=== PATIENT | female | born 1990 | race Caucasian/White ===

== ENCOUNTER 2017-03-08 19:38 | Observation (INO) | payer BC ==
[~2017-03-08] VITALS: Ht 162.6 cm; Wt 61.2 kg
[~2017-03-08 19:38] MED LIST: CYCL10TA29 PO; OXYC-865 PO
--- NOTE | 2017-03-08 19:57 | ER Report ---
History and Physical Time Seen By MD: 19:56 Hx. of Stated Complaint: VOMITING AND DIARRHEA X 24 HOURS. HPI/ROS CHIEF COMPLAINT: Vomiting and diarrhea HISTORY OF PRESENT ILLNESS: This is a 24 week , 26-year-old female who presents to the emergency department for nausea and vomiting and diarrhea. Patient states she developed some nausea and vomiting after eating at [employer] last night continue to have nausea vomiting and diarrhea throughout the night. Today she [facility] where they started an IV gave her some fluids send her home with some ODT Zofran for her nausea vomiting. States she continues to have nausea vomiting and diarrhea, aches, chills and a mild nonproductive cough. Patient denies shortness of breath or chest pain, no vaginal discharge or bleeding. Patient states she is feeling the baby kick. She also states that they did heart tones today and it was "fine". Patient denies dysuria. REVIEW OF SYSTEMS: Constitutional: As above. Eyes: No discharge. ENT: No sore throat. Cardiovascular: No chest pain, no palpitations. Respiratory: As above. Gastrointestinal: As above. Genitourinary: No hematuria. Musculoskeletal: No back pain. Skin: No rashes. Neurological: No headache. Allergies: Coded Allergies: No Known Drug Allergies (Unverified , 03/08/17) Past Medical/Surgical History Patient has a past medical and surgical history of pleurisy, UTIs. Reviewed Nurses Notes: Yes Hx Smoking: No Smoking Status: Never Smoker Hx Substance Use Disorder: No Hx Alcohol Use: No Constitutional Vital Sign - Last 24 Hours 03/08/17 19:43 Temp 98.2 Pulse 122 Resp 20 B/P (MAP) 116/73 Pulse Ox 95 O2 Delivery Room Air Physical Exam General Appearance: The patient is alert, has no immediate need for airway protection and no signs of toxicity. Eyes: Pupils equal and round no pallor or injection. ENT, Mouth: Mucous membranes are moist. Respiratory: There are no retractions, lungs are clear to auscultation. Cardiovascular: Regular rate and rhythm, no murmurs, clicks or rubs. Gastrointestinal: Abdomen is soft, round and non tender, no masses, bowel sounds normal. FHT-145. Neurological: Alert and oriented 4. Moving all extremities. Following all commands. No focal neuro deficits. Skin: Warm and dry, no rashes. Musculoskeletal: Neck is supple non tender. Extremities are nontender, nonswollen and have full range of motion. DIFFERENTIAL DIAGNOSIS: After history and physical exam differential diagnosis was considered for nausea and vomiting including but not limited to gastroenteritis, gastritis, appendicitis, and medication side effect, viral syndrome, influenza. Medical Decision Making Data Points Result Diagram: 03/08/17194103/08/171941 Laboratory Hematology Test 03/08/17 19:42 03/08/17 20:12 03/08/17 20:30 Red Blood Count 3.97 M/uL (4.17-5.56) Mean Corpuscular Volume 88.0 fL (80.0-96.0) Mean Corpuscular Hemoglobin 30.7 pg (26.0-33.0) Mean Corpuscular Hemoglobin Concent 34.9 g/dL (32.0-36.0) Red Cell Distribution Width 12.7 % (11.5-14.5) Mean Platelet Volume 9.6 fL (7.2-11.1) Neutrophils (%) (Auto) 80.0 % (39.4-72.5) Lymphocytes (%) (Auto) 11.9 % (17.6-49.6) Monocytes (%) (Auto) 7.4 % (4.1-12.4) Eosinophils (%) (Auto) 0.3 % (0.4-6.7) Basophils (%) (Auto) 0.4 % (0.3-1.4) Nucleated RBC Relative Count (auto) 0.0 /100WBC Neutrophils # (Auto) 5.5 K/uL (2.0-7.4) Lymphocytes # (Auto) 0.8 K/uL (1.3-3.6) Monocytes # (Auto) 0.5 K/uL (0.3-1.0) Eosinophils # (Auto) 0.0 K/uL (0.0-0.5) Basophils # (Auto) 0.0 K/uL (0.0-0.1) Nucleated RBC Absolute Count (auto) 0.00 K/uL Sodium Level 131 mmol/L (137-145) Potassium Level 3.2 mmol/L (3.5-5.0) Chloride Level 102 mmol/L (98-107) Carbon Dioxide Level 18 mmol/L (22-31) Blood Urea Nitrogen 8 mg/dl (7-18) Creatinine 0.50 mg/dl (0.52-1.04) Glomerular Filtration Rate Calc > 60.0 Random Glucose 83 mg/dl (75-110) Calcium Level 8.4 mg/dl (8.4-10.2) Total Bilirubin 0.7 mg/dl (0.2-1.3) Aspartate Amino Transf (AST/SGOT) 33 U/L (0-35) Alanine Aminotransferase (ALT/SGPT) 37 U/L (0-56) Alkaline Phosphatase 117 U/L (0-126) Total Protein 6.8 gm/dl (6.3-8.2) Albumin 3.4 g/dl (3.5-5.0) Urine Color Yellow Urine Clarity Slightly-cloudy Urine pH 5.0 pH (4.8-9.5) Urine Specific [place] 1.024 Urine Protein 30 mg/dL (NEGATIVE) Urine Glucose (UA) Negative mg/dL (NEGATIVE) Urine Ketones 20 mg/dL (NEGATIVE) Urine Blood Negative (NEGATIVE) Urine Nitrite Negative (NEGATIVE) Urine Bilirubin Negative (NEGATIVE) Urine Urobilinogen 4.0 mg/dL (0.2-1.9) Urine Leukocyte Esterase Small (NEGATIVE) Urine RBC 1 /HPF (0-2/HPF) Urine WBC 10 /HPF (0-5/HPF) Urine Squamous Epithelial Cells Many /LPF (</=FEW) Urine Bacteria Negative /HPF (NONE-FEW) Urine Mucus Few /HPF (NONE-FEW) Influenza Virus Type A (PCR) Negative (NEGATIVE) Influenza Virus Type B (PCR) Negative (NEGATIVE) Chemistry Test 03/08/17 19:42 03/08/17 20:12 03/08/17 20:30 White Blood Count 6.8 k/uL (4.5-11.0) Red Blood Count 3.97 M/uL (4.17-5.56) Hemoglobin 12.2 g/dL (12.0-16.0) Hematocrit 34.9 % (34.0-47.0) Mean Corpuscular Volume 88.0 fL (80.0-96.0) Mean Corpuscular Hemoglobin 30.7 pg (26.0-33.0) Mean Corpuscular Hemoglobin Concent 34.9 g/dL (32.0-36.0) Red Cell Distribution Width 12.7 % (11.5-14.5) Platelet Count 179 K/uL (150-450) Mean Platelet Volume 9.6 fL (7.2-11.1) Neutrophils (%) (Auto) 80.0 % (39.4-72.5) Lymphocytes (%) (Auto) 11.9 % (17.6-49.6) Monocytes (%) (Auto) 7.4 % (4.1-12.4) Eosinophils (%) (Auto) 0.3 % (0.4-6.7) Basophils (%) (Auto) 0.4 % (0.3-1.4) Nucleated RBC Relative Count (auto) 0.0 /100WBC Neutrophils # (Auto) 5.5 K/uL (2.0-7.4) Lymphocytes # (Auto) 0.8 K/uL (1.3-3.6) Monocytes # (Auto) 0.5 K/uL (0.3-1.0) Eosinophils # (Auto) 0.0 K/uL (0.0-0.5) Basophils # (Auto) 0.0 K/uL (0.0-0.1) Nucleated RBC Absolute Count (auto) 0.00 K/uL Glomerular Filtration Rate Calc > 60.0 Calcium Level 8.4 mg/dl (8.4-10.2) Total Bilirubin 0.7 mg/dl (0.2-1.3) Aspartate Amino Transf (AST/SGOT) 33 U/L (0-35) Alanine Aminotransferase (ALT/SGPT) 37 U/L (0-56) Alkaline Phosphatase 117 U/L (0-126) Total Protein 6.8 gm/dl (6.3-8.2) Albumin 3.4 g/dl (3.5-5.0) Urine Color Yellow Urine Clarity Slightly-cloudy Urine pH 5.0 pH (4.8-9.5) Urine Specific [place] 1.024 Urine Protein 30 mg/dL (NEGATIVE) Urine Glucose (UA) Negative mg/dL (NEGATIVE) Urine Ketones 20 mg/dL (NEGATIVE) Urine Blood Negative (NEGATIVE) Urine Nitrite Negative (NEGATIVE) Urine Bilirubin Negative (NEGATIVE) Urine Urobilinogen 4.0 mg/dL (0.2-1.9) Urine Leukocyte Esterase Small (NEGATIVE) Urine RBC 1 /HPF (0-2/HPF) Urine WBC 10 /HPF (0-5/HPF) Urine Squamous Epithelial Cells Many /LPF (</=FEW) Urine Bacteria Negative /HPF (NONE-FEW) Urine Mucus Few /HPF (NONE-FEW) Influenza Virus Type A (PCR) Negative (NEGATIVE) Influenza Virus Type B (PCR) Negative (NEGATIVE) Urinalysis Test 03/08/17 20:12 Urine Color Yellow Urine Clarity Slightly-cloudy Urine pH 5.0 pH (4.8-9.5) Urine Specific [place] 1.024 Urine Protein 30 mg/dL (NEGATIVE) Urine Glucose (UA) Negative mg/dL (NEGATIVE) Urine Ketones 20 mg/dL (NEGATIVE) Urine Blood Negative (NEGATIVE) Urine Nitrite Negative (NEGATIVE) Urine Bilirubin Negative (NEGATIVE) Urine Urobilinogen 4.0 mg/dL (0.2-1.9) Urine Leukocyte Esterase Small (NEGATIVE) Urine RBC 1 /HPF (0-2/HPF) Urine WBC 10 /HPF (0-5/HPF) Urine Squamous Epithelial Cells Many /LPF (</=FEW) Urine Bacteria Negative /HPF (NONE-FEW) Urine Mucus Few /HPF (NONE-FEW) ED Course/Re-evaluation Clinical Indication for ER IV: Hydration, IV Access ED Course The patient was admitted to room. A history physical were obtained. Differential diagnoses were considered. An IV was started. A CBC, CMP and UA were obtained. CBC showing percent neutrophils 80.0 chemistry showing sodium 131 , potassium 3.2, urine showing 20 [id number] bilirubin, urine WBC's 10, urine appears to be contaminated, however I did order a urine culture. Negative influenza. Patient was given a 1 L normal saline bolus, 4 mg IV Zofran. Patient' s heart rate did come down from 125 BPM to 115 BPM. I reviewed these results with the patient and her and told him I would contact Dr. Grayson discuss case with him for possible admission. The patient and her were in agreement with this plan of care. I did speak with Dr. Grayson as noted below he's accepted the patient and his service. The patient will be admitted to the family care unit for nausea, vomiting, diarrhea. I did update the patient and her about the admission. The patient and her had no other questions or concerns at the time of admission. 03/08/2017 9:27:55 pm I did discuss the case with Dr. Grayson and her failed outpatient therapy, he has agreed to admit the patient to the family care unit for nausea, vomiting, diarrhea. I will go ahead and write admission orders as requested. Family care staff can contact Dr. Grayson for any other needs. Decision to Disposition Date: Mar 08, 2017 Decision to Disposition Time: 21:26 Depart Departure Latest Vital Signs Vital Signs Date Time Temp Pulse Resp B/P (MAP) Pulse Ox O2 Delivery O2 Flow Rate FiO2 03/08/17 19:43 98.2 122 20 116/73 95 Room Air Impression: Primary Impression: Vomiting and diarrhea Additional Impression: Condition: Improved Disposition: Admitted from ER MD Consult Note: Dr. Silva Problem Qualifiers Additional Impression: Weeks of gestation: 24 weeks Qualified Codes: Z3A.24 - 24 weeks gestation of KARTIK DANIELS HELMINTHOLOGIST-BC Mar 08, 2017 19:57
[2017-03-08] MEDS ORDERED: NS(*) 0.9% 1000 ML BAG 1,000 ML IV ONE (20:10)
[2017-03-08] MEDS ORDERED: ONDANSETRON 4 MG/2 ML VIAL IVP ONE ×2 (20:10→21:30)
[2017-03-08 20:20] LABS: PLATELET COUNT, AUTOMATED 179 K/uL (150-450)
[2017-03-08] MEDS ORDERED: PROMETHAZINE 25 MG/ML 1 ML AMP IVP PRN (22:15)
[2017-03-08] MEDS: DLR(*) 1000 ML BAG 1,000 ML IV SCH (22:20)
[2017-03-08] MEDS ORDERED: ONDA4TAB PO (22:48)
[2017-03-08] MEDS ORDERED: PREN-127 PO (22:48)
[2017-03-08 23:10] VITALS: BP 102/63
[2017-03-09] MEDS ORDERED: ONDANSETRON 4 MG/2 ML VIAL IVP PRN (01:30)
[2017-03-09] MEDS: DLR(*) 1000 ML BAG 1,000 ML IV SCH (03:34)
--- NOTE | 2017-03-09 03:53 | History & Physical ---
History of Present Illness Age of Patient: 26 : 1 Para or TPAL: 0 Estimated Gestational Age: 24 Chief Complaint nausea, vomiting, diarrhea History of Present Illness Presented to ER with nausea, vomiting and diarrhea. Reported developed nausea the evening of the after eating at [employer] and continued through the day on the . She had gone to the clinic for evaluation and received IV fluids and Zofran. The situation however did not improve after going home and became more nauseated. In ER she was stabilized again with IVFs and anti-emetics but considering her initial failed outpt management, she is admitted for observation and IVF resuscitation. Labs show mildly decreased sodium and ketones in urine consistent with dehydration. History Allergies: Coded Allergies: No Known Drug Allergies (Unverified , 03/08/17) Med Rec Home Meds Reported Medications Vits W-Ca,Fe,Fa(<1MG) ( VITAMINS) 1 Each Tablet, 1 EACH PO DAILY, #1 TAB 03/08/17 Ondansetron (ZOFRAN ODT) 4 Mg Tab.rapdis, 4 MG PO Q12H, #1 TAB.NEELAM 03/08/17 Review of Systems All Systems Reviewed/Normal: Yes, Except as Noted Exam General Exam Vital Signs Vital Signs Date Time Temp Pulse Resp B/P (MAP) Pulse Ox O2 Delivery O2 Flow Rate FiO2 03/08/17 23:10 98.2 113 18 102/63 (76) 95 Room Air General Apperance: Other (asleep) Neuro: No Gross deficits (per ER report) Abdomen: Soft, Non-Tender, Non-Distended, Gravid - Non-Tender (per ER report) Fetus Heart Tones: 144 Medical Decision Making Data Points Result Diagram: 03/08/17194103/08/171941 Assessment and Plan Problems: (1) 24 completed weeks of gestation (2) Vomiting and diarrhea Status: Acute Assessment & Plan: Anti-emetics and IVF hydration. Will test her ability to tolerate PO foods later today. YAW NORWOOD MD Mar 09, 2017 03:53
[2017-03-09 04:30] VITALS: BP 88/41
[2017-03-09] MEDS ORDERED: ACETA/BUTAL/CAFF 325/50/40 TAB PO ONE (08:10)
--- NOTE | 2017-03-09 08:17 | OB/GYN Progress Note ---
OB Subjective Progress Notes Subjective Reports she is feeling better. No nausea this morning but has a headache. Diarrhea is resolved. 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 Will send home with some Phenergan as well as the ODT Zofran she has. Keep her regular appt. YAW NORWOOD MD Mar 09, 2017 08:17
[2017-03-09] MEDS ORDERED: PROM25AM11 PO (08:18)
--- NOTE | 2017-03-09 08:20 | Short(Outpt) Discharge Summary ---
Discharge Summary Reason for Hosp/Final Diag: (1) 24 completed weeks of gestation (2) Vomiting and diarrhea Status: Acute Hospital Course & Plan: Discussed going home and eating a bland diet. Will send home with some Phenergan as well as the ODT Zofran she has. Keep her regular appt. 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
[2017-03-09 08:58] VITALS: BP 108/66
[2017-03-09 09:30] VITALS: Ht 162.6 cm; Wt 61.2 kg
== END 2017-03-09 08:18 | disposition home or self-care (01) ==
LOC: ER 19:51 → PED 21:49
PROVIDERS: ADMIT Obstetrics & Gynecology; ATTEND Obstetrics & Gynecology
DX: O21.2 Late vomiting of pregnancy (principal); Z3A.24 24 weeks gestation of pregnancy; R79.89 Other specified abnormal findings of blood chemistry; R82.90 Unspecified abnormal findings in urine
CPT/HCPCS: 81001; 85025; 87088; 87502; 99285; G0378; J2405; J7030; 82040; 82247; 82310; 82374; 82435; 82565; 82947; 84075; 84132; 84155; 84295; 84450; 84460; 84520; 87077; 87186

== ENCOUNTER → 2017-06-03 | Outpatient (REF) | payer BC, MEDICAID ==
[2017-03-09 09:30] VITALS: BMI 23.2
[~2017-06-03] MED LIST changes: +ONDA4TAB PO; +PREN-127 PO; +PROM25AM11 PO
== END ==
LOC: ZZSENDIN 16:28
PROVIDERS: ATTEND Obstetrics & Gynecology
DX: O42.90 Premature rupture of membranes, unspecified as to length of time between rupture and onset of labor, unspecified weeks of gestation (principal)
CPT/HCPCS: 84112

== ENCOUNTER 2017-06-10 00:36 | Inpatient (IN) | payer BC, MEDICAID ==
[~2017-06-10] VITALS: Ht 162.6 cm; Wt 72.6 kg
[2017-06-10] VITALS (7 sets, daily range): BP systolic 118–159; BP diastolic 64–97; Ht 162.6 cm; Wt 72.6 kg
[2017-06-10] MEDS ORDERED: LR(*) 1000 ML BAG 1,000 ML IV PRN ×2 (00:38→05:25)
[2017-06-10] MEDS ORDERED: OXYTOCIN 30 UNIT/D5LR 500 ML 500 ML ONE (01:01)
[2017-06-10] MEDS ORDERED: OXYTOCIN 30 UNIT/D5LR 500 ML 0 ML ONE (01:06)
[2017-06-10] MEDS: LR(*) 1000 ML BAG 1,000 ML IV SCH ×3 (01:20→21:32)
[2017-06-10] MEDS ORDERED: FAMOTIDINE(*) 20MG/50ML PREMIX 50 ML IVPB PRN (01:32)
[2017-06-10] MEDS ORDERED: OXYTOCIN 30 UNIT/D5LR 500 ML 500 ML IV PRN ×2 (01:32→05:25)
[2017-06-10] MEDS ORDERED: LIDOCAINE 1% LOCAL 300 MG/30ML INJ PRN (01:35)
[2017-06-10] MEDS ORDERED: METOCLOPRAMIDE 10 MG/2 ML SDV IVP PRN (01:35)
[2017-06-10] MEDS ORDERED: HYDROCORTISONE 2.5% CR 30GM TB PR PRN (01:35)
[2017-06-10] MEDS ORDERED: INFLUENZA VIRUS VAC 0.5 ML SYR IM ONLY ONE (01:35)
[2017-06-10] MEDS ORDERED: LANOLIN OINT 7 GM TUBE TP PRN (01:35)
[2017-06-10] MEDS ORDERED: fentaNYL CITR 100 MCG/2 ML AMP IVP PRN (01:35)
[2017-06-10] MEDS ORDERED: MAGNESIUM HYDROXIDE* 30ML UDCP PO PRN (01:35)
[2017-06-10] MEDS ORDERED: BENZOCAINE 20% 60 ML BTL TP PRN (01:35)
[2017-06-10] MEDS ORDERED: LIDOCAINE/SOD BICARB 8.4% SYR SC PRN (01:35)
[2017-06-10] MEDS ORDERED: FLUSH 10 ML SYR IVP PRN (01:35)
[2017-06-10] MEDS ORDERED: ACETAMINOPHEN 325 MG TAB PO PRN (01:35)
[2017-06-10] MEDS ORDERED: HYDROmorphone HCL 2 MG TAB PO PRN (01:35)
[2017-06-10] MEDS ORDERED: GLYCERIN/WITCH HAZEL LEAF 1 PK TOP PRN (01:35)
[2017-06-10] MEDS ORDERED: LIDOCAINE 1% LOCAL 300 MG/30ML INJ ONE (01:40)
--- NOTE | 2017-06-10 02:10 | History & Physical ---
History of Present Illness Age of Patient: 26 : 1 Para or TPAL: 0 EDC per LMP: June 20, 2017 Estimated Gestational Age: 38.2 Chief Complaint Labor and delivery History of Present Illness Presents in active labor and nearly completely dilated and feeling pushy. Reports contractions started at 10 pm. History of chlamydia early in and repeat testing negative. GBS negative. record out of date and reviewed. Failed 1hr GTT but passed 3hr GTT by her report. Past Medical, Surgical, Family and Obstetric Histories reviewed. Please see ACOG chart. History Allergies: Coded Allergies: No Known Drug Allergies (Unverified , 03/08/17) Med Rec Home Meds Active Scripts Promethazine Hcl (PROMETHAZINE HCL) 25 Mg/1 Ml Ampul, 12.5 MG PO Q8H Y for NAUSEA, #20 TAB 0 Refills Prov:YAW NORWOOD MD 03/09/17 Reported Medications Vits W-Ca,Fe,Fa(<1MG) ( VITAMINS) 1 Each Tablet, 1 EACH PO DAILY, #1 TAB 03/08/17 Ondansetron (ZOFRAN ODT) 4 Mg Tab.rapdis, 4 MG PO Q12H, #1 TAB.NEELAM 03/08/17 Review of Systems Other as per HPI Exam General Exam General Apperance: Alert/Awake/No Acute Distress Neuro: No Gross deficits Cardiovascular: Regular Rate and Rhythm Respiratory: No Respiratory Distress Abdomen: Soft, Non-Tender, Non-Distended Integumentary: Other (sores all over skin) Psychological: Alert & Oriented X3 Fetus Heart Tone Variabilty: Moderate FHT Accelerations: Present FHT Category: I Medical Decision Making VTE Prophylasis: Adult Deep Vein Thrombosis/Pulmonary: No Pharmacological Contraindicati: Pt at Low Risk for VTE Mechanical Contraindications: Pt at Low Risk for VTE 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 YAW NORWOOD MD June 10, 2017 02:10
--- NOTE | 2017-06-10 02:18 | OB Delivery Note ---
Delivery Note Vaginal Delivery Type: Spont. Vaginal Delivery Delivery Date: June 10, 2017 Delivery Time: 01:26 Estimated Gestational Age(wks): 38.3 Delivery Anesthesia: Local Sex: Female [place] Apgars: 1 Minute (9), 5 Minute (9) Repair Needed: Episiotomy-Midline, 2nd Degree, 3rd Degree (extension) Estimated Blood Loss: 300 Delivery Complications: Precipitous Notes: Notified of pts arrival nearly complete and pushy. Upon my arrival, pt actively pushing and . Local anesthetic, 1% lidocaine to perineum. Perineum broad and narrowed introitus so midline episiotomy performed. Delivery of head in HARRY position. Posterior shoulder delivered and extended to a third degree. Placenta delivered spontaneously and intact. Repair of anal sphincter with 2-0 Vicryl in interrupted stitches. Full repair with 2-0 chromic without complication. Table Maker in Attendence: No Copies to: YAW NORWOOD MD, TRAVIS MD June 10, 2017 02:18
[2017-06-10] MEDS ORDERED: ONDANSETRON 4 MG/2 ML VIAL IVP PRN (02:35)
[2017-06-10 03:00] LABS: PLATELET COUNT, AUTOMATED 161 K/uL (150-450)
[2017-06-10] MEDS: IBUPROFEN 800 MG TAB PO SCH ×3 (03:38→20:21)
[2017-06-10] MEDS: FERROUS SULFATE 325 MG TAB PO SCH ×2 (08:30→18:04)
[2017-06-10] MEDS: DOCUSATE CALCIUM 240 MG CAP PO SCH ×2 (08:30→20:21)
--- NOTE | 2017-06-10 08:37 | OB/GYN Progress Note ---
OB Subjective Progress Notes Subjective Initially light headed when up. Pt came in at hgb 9 and this AM post delivery is 8.4. Feeling better now and able to ambulate fine. Normal lochia, pain controlled. GI: NEG Nausea : Voiding Well Pain: Mild OB Objective Physical Exam Vital Signs Date Time Temp Pulse Resp B/P (MAP) Pulse Ox O2 Delivery O2 Flow Rate FiO2 06/10/17 07:10 98.3 100 16 124/76 (92) Room Air Intake and Output 06/11/17 07:00 Output Total 200 ml Balance -200 ml Output Urine Total 200 ml General Appearance: Alert/Awake/No Acute Distress Neurological: No Gross deficits Cardiovascular: Normal Rhythm & Peripheral Pulses, Regular Rate and Rhythm Respiratory: No Respiratory Distress, Clear to Auscultation Abdomen: Soft, Non-Tender, Non-Distended, Fundus Firm, Non-Tender Integumentary: Other (sores all over skin) Psychological: Alert & Oriented X3, Appropriate Mood & Affect Result Diagram: 06/10/17 0545 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 Will have her supplement iron in . YAW NORWOOD MD June 10, 2017 08:37
[2017-06-10] MEDS ORDERED: MEASLES,MUMP,RUBELLA VAC 0.5ML SUBQ ONE (10:00)
[2017-06-10] MEDS ORDERED: DIPHTH/TETANUS/ACEL. PERTUSSIS IM ONLY ONE (10:00)
[2017-06-10] MEDS ORDERED: APAP/HYDROCODONE 325/5 TAB PO PRN (17:55)
[2017-06-11] MEDS: IBUPROFEN 800 MG TAB PO SCH ×2 (04:00→07:42)
[2017-06-11 04:07] VITALS: BP 116/56
[2017-06-11 07:30] VITALS: BP 121/77
[2017-06-11] MEDS: LR(*) 1000 ML BAG 1,000 ML IV SCH (07:32)
[2017-06-11] MEDS: FERROUS SULFATE 325 MG TAB PO SCH (07:41)
[2017-06-11] MEDS: DOCUSATE CALCIUM 240 MG CAP PO SCH (07:42)
[2017-06-11] MEDS ORDERED: IBUPROFEN 800 MG TAB PO SCH (08:00)
[2017-06-11] MEDS ORDERED: LR(*) 1000 ML BAG 1,000 ML IV PRN (09:35)
[2017-06-11 11:10] VITALS: BP 144/82
--- NOTE | 2017-06-11 11:17 | OB/GYN Progress Note ---
OB Subjective Progress Notes Subjective Feeling well. Little cramping pain and lochia normal and lessening. No dizziness or light headedness. No headache. Ambulating well and tolerating regular diet. Voiding well. GI: NEG Nausea : Voiding Well Pain: Mild OB Objective Physical Exam Vital Signs Date Time Temp Pulse Resp B/P (MAP) Pulse Ox O2 Delivery O2 Flow Rate FiO2 06/11/17 11:10 98.1 101 16 144/82 (102) 94 Room Air General Appearance: Alert/Awake/No Acute Distress Neurological: No Gross deficits Cardiovascular: Normal Rhythm & Peripheral Pulses, Regular Rate and Rhythm Respiratory: No Respiratory Distress, Clear to Auscultation Abdomen: Soft, Non-Tender, Non-Distended, Fundus Firm, Non-Tender Integumentary: Other (sores all over skin (pt states are due to picking)) Psychological: Alert & Oriented X3, Appropriate Mood & Affect Result Diagram: 06/10/17 0545 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 Home today. Reviewed all precautions and instructions. F/U at 6 weeks and call if concerns. YAW NORWOOD MD June 11, 2017 11:17
[2017-06-11] MEDS ORDERED: HYDR2TAB4 PO (11:19)
[2017-06-11] MEDS ORDERED: FERR-53 PO (11:19)
--- NOTE | 2017-06-11 11:20 | OB/GYN Discharge Summary ---
Discharge Summary Reason for Hosp/Final Diag: (1) 38 weeks gestation of (2) Anemia affecting , antepartum Hospital Course & Plan: Recommend she continue PNVs and iron supplement through . Home today. Reviewed all precautions and instructions. F/ U at 6 weeks and call if concerns. [place] Vital Signs Vital Signs Date Time Temp Pulse Resp B/P (MAP) Pulse Ox O2 Delivery O2 Flow Rate FiO2 06/11/17 11:10 98.1 101 16 144/82 (102) 94 Room Air Weight (Pounds): 160 Result Diagram: 06/10/17 0545 Condition: Improved Discharge: Home, Self Halfway Meds Active Scripts Hydromorphone Hcl (HYDROMORPHONE HCL) 2 Mg Tablet, 2 MG PO Q4H Y for PAIN, #10 TAB 0 Refills Prov:YAW GRAYSON MD 06/11/17 Reported Medications Vits W-Ca,Fe,Fa(<1MG) ( VITAMINS) 1 Each Tablet, 1 EACH PO DAILY, #1 TAB 03/08/17 Discontinued Reported Medications Ondansetron (ZOFRAN ODT) 4 Mg Tab.rapdis, 4 MG PO Q12H, #1 TAB.NEELAM 03/08/17 Discontinued Scripts Promethazine Hcl (PROMETHAZINE HCL) 25 Mg/1 Ml Ampul, 12.5 MG PO Q8H Y for NAUSEA, #20 TAB 0 Refills Prov:YAW GRAYSON MD 03/09/17 Follow up Referrals: [employer]ENHAD[employer] MEMBER - In 6 Weeks @ [facility] with Yaw Grayson Md Follow up with: Dr. Grayson [phone] Follow up in: 6 wks PP or PO Discharge Diet: As Tolerates Discharge Activity: As Tolerates, No Heavy Lifting x 6 wks, No Heavy Lifting > 10lb, Pelvic Rest Copies to: YAW GRAYSON MD, TRAVIS MD June 11, 2017 11:20
== END 2017-06-11 14:30 | disposition home or self-care (01) | DRG 775 ==
LOC: OBSVTOIN 00:36 → OB 00:36
PROVIDERS: ADMIT Obstetrics & Gynecology; ATTEND Obstetrics & Gynecology
PROC: 10E0XZZ Delivery of Products of Conception, External Approach (ICD-10-PCS; principal; 2017-06-10)
PROC: 0DQR0ZZ Repair Anal Sphincter, Open Approach (ICD-10-PCS; 2017-06-10)
PROC: 0W8NXZZ Division of Female Perineum, External Approach (ICD-10-PCS; 2017-06-10)
DX: O62.3 Precipitate labor (principal); O70.20 Third degree perineal laceration during delivery, unspecified; Z3A.38 38 weeks gestation of pregnancy; Z37.0 Single live birth
CPT/HCPCS: 36415; 80305; 85025; 85027; J2001; J7120

== ENCOUNTER 2017-08-24 18:38 | Emergency (ER) | payer MEDICAID ==
[2017-06-10 04:41] VITALS: Wt 54.4 kg
[~2017-08-24 18:38] MED LIST changes: +FERR-53 PO; +HYDR2TAB4 PO
--- NOTE | 2017-08-24 18:46 | ER Report ---
History and Physical Time Seen By MD: 18:45 HPI/ROS CHIEF COMPLAINT: Abdominal pain HISTORY OF PRESENT ILLNESS: This is a 27-year-old female who presents to the emergency department for epigastric pain. Patient states that about 20 minutes prior to arrival she had a sudden onset of epigastric pain, and some diarrhea. Patient is also recently with a vaginal delivery, no complications during the delivery no complications during the . Patient denies fevers or chills, no nausea or vomiting. No rashes. No vaginal bleeding. No blood in the stool. Patient during my examination is indicating that the pain has resolved REVIEW OF SYSTEMS: Constitutional: No fever, no chills. Eyes: No discharge. ENT: No sore throat. Cardiovascular: No chest pain, no palpitations. Respiratory: No cough, no shortness of breath. Gastrointestinal: As above. Genitourinary: No hematuria. Musculoskeletal: No back pain. Skin: No rashes. Neurological: No headache. Allergies: Coded Allergies: No Known Drug Allergies (Unverified , 03/08/17) Home Meds Reported Medications Vits W-Ca,Fe,Fa(<1MG) ( VITAMINS) 1 Each Tablet, 1 EACH PO DAILY, #1 TAB 03/08/17 Discontinued Scripts Hydromorphone Hcl (HYDROMORPHONE HCL) 2 Mg Tablet, 2 MG PO Q4H Y for PAIN, #10 TAB 0 Refills Prov:YAW NORWOOD MD 06/11/17 Ferrous Sulfate (FERROUS SULFATE) 325 Mg Tablet, 325 MG PO DAILY, #30 TAB 0 Refills Prov:YAW NORWOOD MD 06/11/17 Past Medical/Surgical History Patient has a past medical and surgical history of pleurisy, vaginal childbirth , no other significant history. Reviewed Nurses Notes: Yes Hx Smoking: Yes Smoking Status: Former Smoker Exposure to Second Hand Smoke?: Yes Hx Substance Use Disorder: No Hx Alcohol Use: No Constitutional Vital Sign - Last 24 Hours 08/24/17 18:42 Pulse 96 Resp 18 B/P (MAP) 125/78 Pulse Ox 97 O2 Delivery Room Air Physical Exam General Appearance: The patient is alert, has no immediate need for airway protection and no signs of toxicity. Eyes: Pupils equal and round no pallor or injection. ENT, Mouth: Mucous membranes are moist. Respiratory: There are no retractions, lungs are clear to auscultation. Cardiovascular: Regular rate and rhythm, no murmurs, clicks or rubs. Gastrointestinal: Abdomen is soft and non tender, no masses, bowel sounds normal. No CVA tenderness. Neurological: Alert and oriented 4. Moving all extremity's. Following Bernabe is. No focal neuro deficits. Skin: Warm and dry, no rashes. Musculoskeletal: Neck is supple non tender. Extremities are nontender, nonswollen and have full range of motion. [ ] DIFFERENTIAL DIAGNOSIS: After history and physical exam differential diagnosis was considered for abdominal pain in a female including but not limited to ovarian cyst, pelvic inflammatory disease, ovarian torsion, gastroenteritis, urinary tract infection, and appendicitis. Medical Decision Making Data Points Result Diagram: 08/24/17 1843 08/24/17 1843 Laboratory Hematology Test 08/24/17 18:43 Red Blood Count 4.85 M/uL (4.17-5.56) Mean Corpuscular Volume 69.1 fL (80.0-96.0) Mean Corpuscular Hemoglobin 22.0 pg (26.0-33.0) Mean Corpuscular Hemoglobin Concent 31.8 g/dL (32.0-36.0) Red Cell Distribution Width 17.6 % (11.5-14.5) Mean Platelet Volume 9.2 fL (7.2-11.1) Neutrophils (%) (Auto) 65.5 % (39.4-72.5) Lymphocytes (%) (Auto) 26.1 % (17.6-49.6) Monocytes (%) (Auto) 7.1 % (4.1-12.4) Eosinophils (%) (Auto) 0.9 % (0.4-6.7) Basophils (%) (Auto) 0.4 % (0.3-1.4) Nucleated RBC Relative Count (auto) 0.1 /100WBC Neutrophils # (Auto) 5.9 K/uL (2.0-7.4) Lymphocytes # (Auto) 2.4 K/uL (1.3-3.6) Monocytes # (Auto) 0.6 K/uL (0.3-1.0) Eosinophils # (Auto) 0.1 K/uL (0.0-0.5) Basophils # (Auto) 0.0 K/uL (0.0-0.1) Nucleated RBC Absolute Count (auto) 0.01 K/uL Peripheral Blood Smear Y/N Urine Color Yellow Urine Clarity Cloudy Urine pH 5.0 pH (4.8-9.5) Urine Specific [place] 1.035 Urine Protein 30 mg/dL (NEGATIVE) Urine Glucose (UA) Negative mg/dL (NEGATIVE) Urine Ketones Trace mg/dL (NEGATIVE) Urine Blood Negative (NEGATIVE) Urine Nitrite Negative (NEGATIVE) Urine Bilirubin Small (NEGATIVE) Urine Urobilinogen 2.0 mg/dL (0.2-1.9) Urine Leukocyte Esterase Moderate (NEGATIVE) Urine RBC 3 /HPF (0-2/HPF) Urine WBC 13 /HPF (0-5/HPF) Urine Squamous Epithelial Cells Many /LPF (</=FEW) Urine Bacteria Few /HPF (NONE-FEW) Urine Mucus Few /HPF (NONE-FEW) Sodium Level 139 mmol/L (137-145) Potassium Level 3.6 mmol/L (3.5-5.0) Chloride Level 102 mmol/L (98-107) Carbon Dioxide Level 23 mmol/L (22-31) Blood Urea Nitrogen 15 mg/dl (7-18) Creatinine 0.60 mg/dl (0.52-1.04) Glomerular Filtration Rate Calc > 60.0 Random Glucose 106 mg/dl (75-110) Calcium Level 9.3 mg/dl (8.4-10.2) Total Bilirubin 0.7 mg/dl (0.2-1.3) Aspartate Amino Transf (AST/SGOT) 30 U/L (0-35) Alanine Aminotransferase (ALT/SGPT) 30 U/L (0-56) Alkaline Phosphatase 98 U/L (0-126) Total Protein 8.1 g/dl (6.3-8.2) Albumin 4.6 g/dl (3.5-5.0) Lipase 123 U/L (23-300) Chemistry Test 08/24/17 18:43 White Blood Count 9.0 k/uL (4.5-11.0) Red Blood Count 4.85 M/uL (4.17-5.56) Hemoglobin 10.7 g/dL (12.0-16.0) Hematocrit 33.5 % (34.0-47.0) Mean Corpuscular Volume 69.1 fL (80.0-96.0) Mean Corpuscular Hemoglobin 22.0 pg (26.0-33.0) Mean Corpuscular Hemoglobin Concent 31.8 g/dL (32.0-36.0) Red Cell Distribution Width 17.6 % (11.5-14.5) Platelet Count 317 K/uL (150-450) Mean Platelet Volume 9.2 fL (7.2-11.1) Neutrophils (%) (Auto) 65.5 % (39.4-72.5) Lymphocytes (%) (Auto) 26.1 % (17.6-49.6) Monocytes (%) (Auto) 7.1 % (4.1-12.4) Eosinophils (%) (Auto) 0.9 % (0.4-6.7) Basophils (%) (Auto) 0.4 % (0.3-1.4) Nucleated RBC Relative Count (auto) 0.1 /100WBC Neutrophils # (Auto) 5.9 K/uL (2.0-7.4) Lymphocytes # (Auto) 2.4 K/uL (1.3-3.6) Monocytes # (Auto) 0.6 K/uL (0.3-1.0) Eosinophils # (Auto) 0.1 K/uL (0.0-0.5) Basophils # (Auto) 0.0 K/uL (0.0-0.1) Nucleated RBC Absolute Count (auto) 0.01 K/uL Peripheral Blood Smear Y/N Urine Color Yellow Urine Clarity Cloudy Urine pH 5.0 pH (4.8-9.5) Urine Specific [place] 1.035 Urine Protein 30 mg/dL (NEGATIVE) Urine Glucose (UA) Negative mg/dL (NEGATIVE) Urine Ketones Trace mg/dL (NEGATIVE) Urine Blood Negative (NEGATIVE) Urine Nitrite Negative (NEGATIVE) Urine Bilirubin Small (NEGATIVE) Urine Urobilinogen 2.0 mg/dL (0.2-1.9) Urine Leukocyte Esterase Moderate (NEGATIVE) Urine RBC 3 /HPF (0-2/HPF) Urine WBC 13 /HPF (0-5/HPF) Urine Squamous Epithelial Cells Many /LPF (</=FEW) Urine Bacteria Few /HPF (NONE-FEW) Urine Mucus Few /HPF (NONE-FEW) Glomerular Filtration Rate Calc > 60.0 Calcium Level 9.3 mg/dl (8.4-10.2) Total Bilirubin 0.7 mg/dl (0.2-1.3) Aspartate Amino Transf (AST/SGOT) 30 U/L (0-35) Alanine Aminotransferase (ALT/SGPT) 30 U/L (0-56) Alkaline Phosphatase 98 U/L (0-126) Total Protein 8.1 g/dl (6.3-8.2) Albumin 4.6 g/dl (3.5-5.0) Lipase 123 U/L (23-300) Urinalysis Test 08/24/17 18:43 Urine Color Yellow Urine Clarity Cloudy Urine pH 5.0 pH (4.8-9.5) Urine Specific [place] 1.035 Urine Protein 30 mg/dL (NEGATIVE) Urine Glucose (UA) Negative mg/dL (NEGATIVE) Urine Ketones Trace mg/dL (NEGATIVE) Urine Blood Negative (NEGATIVE) Urine Nitrite Negative (NEGATIVE) Urine Bilirubin Small (NEGATIVE) Urine Urobilinogen 2.0 mg/dL (0.2-1.9) Urine Leukocyte Esterase Moderate (NEGATIVE) Urine RBC 3 /HPF (0-2/HPF) Urine WBC 13 /HPF (0-5/HPF) Urine Squamous Epithelial Cells Many /LPF (</=FEW) Urine Bacteria Few /HPF (NONE-FEW) Urine Mucus Few /HPF (NONE-FEW) EKG/Imaging Imaging Location: [facility] Patient: Nawaf Reddy : 1990 Visit/Account:[id number] Date of Sevice: 08/24/2017 Exam: ACUTE ABDOMEN SERIES 3 VIEW Indication: ABD PAIN, RAD Comparison: None available Findings: Single view the chest shows normal cardiomediastinal contours. The lungs are clear. There is no evidence of pneumoperitoneum. Within the abdomen, there is a nonobstructive bowel gas pattern. Moderate amount of food material is noted within the stomach. No abnormal masses or calcifications are identified. IMPRESSION: 1. Negative abdominal series Report Dictated By: Inocente Webb at 08/24/2017 7:52 PM Report E-Signed By: Inocente Webb at 08/24/2017 7:53 PM WSN:[id number] ED Course/Re-evaluation Clinical Indication for ER IV: IV Access ED Course The patient was admitted to room. A history physical obtained. Differential diagnoses were considered. An IV was started. A CBC, CMP, lipase were obtained. Lab studies showing H&H 10.7, 33.5, this is improved from her previous H&H. Chemistry unremarkable. Urine concentrated showing trace ketones contaminated specimen I did however send the urine for culture. Three-view abdomen showing no acute processes. I did review these results with the patient. I did tell her that this could be a gastroenteritis and will likely pass. Patient continues to deny abdominal pain, she states that it has resolved. No indication of recurrent diarrhea while in the emergency department. The patient was instructed follow-up with her [employer] [employer], return to the ER for any other concerns or worsening symptoms. Patient expressed understanding and was discharged home. Decision to Disposition Date: Aug 24, 2017 Decision to Disposition Time: 20:02 Depart Departure Latest Vital Signs Vital Signs Date Time Temp Pulse Resp B/P (MAP) Pulse Ox O2 Delivery O2 Flow Rate FiO2 08/24/17 18:42 96 18 125/78 97 Room Air Impression: Primary Impression: Abdominal pain Additional Impression: Diarrhea Condition: Improved Disposition: HOME OR SELF-CARE Patient Instructions: Abdominal Pain (ED), Acute Diarrhea (ED) Additional Instructions: Drink plenty of fluids. Get plenty of rest. Continue taking your current medications. Follow-up as scheduled with your [employer] [facility]. Return to the emergency department for any other concerns or worsening symptoms. Problem Qualifiers Primary Impression: Abdominal pain Abdominal location: epigastric Qualified Codes: R10.13 - Epigastric pain Additional Impression: Diarrhea Diarrhea type: unspecified type Qualified Codes: R19.7 - Diarrhea, unspecified KARTIK DANIELS- Aug 24, 2017 18:46
[2017-08-24 19:06] LABS: PLATELET COUNT, AUTOMATED 317 K/uL (150-450)
--- NOTE | 2017-08-24 19:57 | RADIOLOGY IMAGING REPORT ---
FACILITY: [facility] PATIENT NAME: Nawaf Reddy : 1990 MR: [id number] V: [id number] EXAM DATE: ORDERING PHYSICIAN: KARTIK DANIELS TECHNOLOGIST: Location: [facility] Patient: Nawaf Reddy : 1990 Visit/Account:[id number] Date of Sevice: 08/24/2017 Exam: ACUTE ABDOMEN SERIES 3 VIEW Indication: ABD PAIN, RAD Comparison: None available Findings: Single view the chest shows normal cardiomediastinal contours. The lungs are clear. There i s no evidence of pneumoperitoneum. Within the abdomen, there is a nonobstructive bowel gas pattern. Moderate amount of food material is noted within the stomach. No abnormal masses or calcifications are identified. IMPRESSION: 1. Negative abdominal series Report Dictated By: Inocente Webb at 08/24/2017 7:52 PM Report E-Signed By: Inocente Webb at 08/24/2017 7:53 PM WSN:[id number]
[2017-08-24 20:00] VITALS: BP 123/72
== END 2017-08-24 20:05 | disposition home or self-care (01) ==
LOC: ER 19:03
DX: R10.13 Epigastric pain (principal); R19.7 Diarrhea, unspecified
CPT/HCPCS: 74022; 81001; 82040; 82247; 82310; 82374; 82435; 82565; 82947; 83690; 84075; 84132; 84155; 84295; 84450; 84460; 84520; 85025; 87088; 99283